=== PATIENT | male | born 1930 | race Caucasian/White ===

== ENCOUNTER 2018-01-17 19:34 | Inpatient (IN) | payer MEDICARE, BC ==
--- NOTE | 2018-01-17 21:17 | EDM.PDOC ---
ED HPI GENERAL MEDICAL PROBLEM - General Chief Complaint: General Stated Complaint: WEAK VIA [facility] Time Seen by Provider: 01/17/18 20:24 Source of Information: Reports: Patient, Family History Limitations: Reports: No Limitations - History of Present Illness INITIAL COMMENTS - FREE TEXT/NARRATIVE: This man arrived by EMS with complaint of weakness and fever. It started last night with not feeling well. At noon today he felt cold and then suddenly weak. No N/V. Hx chronic diarrhea. History of Lymphoma chemo 2013. Today had pain in his left leg. Hurt to move it. Doesn't hurt now. wants him admitted. - Related Data Allergies Allergy/AdvReac Type Severity Reaction Status Date / Time No Known Allergies Allergy Verified 01/17/18 19:50 Home Meds: Home Meds Aspirin [Saloni Chewable] 81 mg PO DAILY 01/17/18 [History] Bifidobacterium Infantis [Align] 4 mg PO DAILY 01/17/18 [History] Colestipol HCl 2 tab PO BEDTIME 01/17/18 [History] Finasteride 5 mg PO DAILY 01/17/18 [History] Loperamide [Imodium] 2 mg PO BID 01/17/18 [History] Simethicone [Phazyme] 250 mg PO DAILY PRN 01/17/18 [History] Past Medical History HEENT History: Reports: Hard of Hearing Other HEENT History: hearing aides Gastrointestinal History: Reports: Other (See Below) Other Gastrointestinal History: diarrhea, Genitourinary History: Reports: BPH, Prostate Disorder Musculoskeletal History: Reports: Back Pain, Chronic Neurological History: Reports: Neuropathy, Diabetic Endocrine/Metabolic History: Reports: Diabetes, Type II Hematologic History: Reports: Anemia Oncologic (Cancer) History: Reports: Other (See Below) Other Oncologic History: leukemia - Past Surgical History GI Surgical History: Reports: Colonoscopy, Other (See Below) Other GI Surgeries/Procedures: portion of small and large intestine removed 2013 b/c of tumor when he had leukemia Oncologic Surgical History: Reports: None Dermatological Surgical History: Reports: Other (See Below) Social & Family History - Family History Family Medical History: Noncontributory - Tobacco Use Smoking Status *Q: Former Smoker Used Tobacco, but Quit: Yes Month/Year Tobacco Last Used: 30 - Caffeine Use Caffeine Use: Reports: Coffee - Alcohol Use Days Per Week of Alcohol Use: 5 Number of Drinks Per Day: 2 Total Drinks Per Week: 10 - Recreational Drug Use Recreational Drug Use: No ED ROS GENERAL - Review of Systems Review Of Systems: See Below Constitutional: Reports: Fever, Weakness HEENT: Reports: No Symptoms Respiratory: Reports: No Symptoms Cardiovascular: Reports: No Symptoms Endocrine: Reports: No Symptoms GI/Abdominal: Reports: Diarrhea (chronic) : Reports: No Symptoms Musculoskeletal: Reports: Other (lt leg apin resolved) Skin: Reports: No Symptoms Neurological: Reports: No Symptoms Psychiatric: Reports: No Symptoms Hematologic/Lymphatic: Reports: No Symptoms Immunologic: Reports: No Symptoms ED EXAM, GENERAL - Physical Exam Exam: See Below Exam Limited By: No Limitations General Appearance: Alert, WD/WN, No Apparent Distress, Other (smiling talkative ) Eye Exam: Bilateral Eye: EOMI, PERRL Ears: Normal TMs, Other (hearing aides) Nose: Normal Inspection Throat/Mouth: Normal Inspection, Normal Oropharynx Head: Atraumatic Neck: Normal Inspection, Supple Respiratory/Chest: Lungs Clear Cardiovascular: Normal Peripheral Pulses, Regular Rate, Rhythm, No Murmur GI/Abdominal: Normal Bowel Sounds, Soft, Non-Tender, Other (lower midline scar) Back Exam: Normal Inspection Extremities: Normal Inspection, Non-Tender, No Pedal Edema Neurological: Alert, Oriented, CN II-XII Intact, Normal Cognition, No Motor/ Sensory Deficits Psychiatric: Normal Affect Skin Exam: Warm, Dry Course - Vital Signs Last Recorded V/S: Last Vital Signs Temp 38.8 C H 01/17/18 22:01 Pulse 97 01/17/18 22:01 Resp 16 01/17/18 22:01 BP 124/65 01/17/18 22:01 Pulse Ox 98 01/17/18 22:01 - Orders/Labs/Meds Orders: Active Orders 24 hr Category Date Time Status EKG Documentation Completion [RC] ASDIRECTED Care 01/17/18 20:42 Active Chest 1V Frontal [CR] Urgent Exams 01/17/18 20:41 Taken CULTURE BLOOD [BC] Urgent Lab 01/17/18 20:45 Received CULTURE BLOOD [BC] Urgent Lab 01/17/18 20:45 Received UA W/MICROSCOPIC [URIN] Urgent Lab 01/17/18 21:49 Ordered Blood Culture x2 Reflex Set [OM.PC] Urgent Oth 01/17/18 20:42 Ordered EKG 12 Lead [EK] Urgent Ther 01/17/18 20:42 Ordered Labs: Laboratory Tests 01/17/18 01/17/18 01/17/18 Range/Units 20:45 20:45 20:45 WBC 12.1 H (4.5-11.0) K/uL RBC 3.97 L (4.30-5.90) M/uL Hgb 12.7 (12.0-15.0) g/dL Hct 36.7 L (40.0-54.0) % MCV 92 (80-98) fL MCH 32 H (27-31) pg MCHC 35 (32-36) % Plt Count 147 L (150-400) K/uL Neut % (Auto) 78 H (36-66) % Lymph % (Auto) 11 L (24-44) % [place] % (Auto) 11 H (2-6) % Eos % (Auto) 0 L (2-4) % Baso % (Auto) 0 (0-1) % Sodium (140-148) mmol/L Potassium (3.6-5.2) mmol/L Chloride (100-108) mmol/L Carbon Dioxide (21-32) mmol/L Anion Gap (5.0-14.0) mmol/L BUN (7-18) mg/dL Creatinine (0.8-1.3) mg/dL Est Cr Clr Drug Dosing mL/min Estimated GFR (MDRD) (>60) Glucose (74-106) mg/dL Lactic Acid 1.6 (0.4-2.0) mmol/L Calcium (8.5-10.1) mg/dL Total Bilirubin (0.2-1.0) mg/dL AST (15-37) U/L ALT (12-78) U/L Alkaline Phosphatase (46-116) U/L C-Reactive Protein 8.64 H (0.0-0.3) mg/dL Total Protein (6.4-8.2) g/dL Albumin (3.4-5.0) g/dL Globulin (2.3-3.5) g/dL Albumin/Globulin Ratio (1.2-2.2) Urine Color Urine Appearance Urine pH (4.5-8.0) Ur Specific [place] (1.008-1.030) Urine Protein (NEGATIVE) mg/dL Urine Glucose (UA) (NEGATIVE) mg/dL Urine Ketones (NEGATIVE) mg/dL Urine Occult Blood (NEGATIVE) Urine Nitrite (NEGAITVE) Urine Bilirubin (NEGATIVE) Urine Urobilinogen (NORMAL) mg/dL Ur Leukocyte Esterase (NEGATIVE) Urine RBC (0-5) Urine WBC (0-5) Ur Epithelial Cells Amorphous Sediment Urine Bacteria Urine Mucus 01/17/18 01/17/18 Range/Units 20:45 21:49 WBC (4.5-11.0) K/uL RBC (4.30-5.90) M/uL Hgb (12.0-15.0) g/dL Hct (40.0-54.0) % MCV (80-98) fL MCH (27-31) pg MCHC (32-36) % Plt Count (150-400) K/uL Neut % (Auto) (36-66) % Lymph % (Auto) (24-44) % [place] % (Auto) (2-6) % Eos % (Auto) (2-4) % Baso % (Auto) (0-1) % Sodium 131 L (140-148) mmol/L Potassium 4.2 (3.6-5.2) mmol/L Chloride 96 L (100-108) mmol/L Carbon Dioxide 24 (21-32) mmol/L Anion Gap 15.2 H (5.0-14.0) mmol/L BUN 14 (7-18) mg/dL Creatinine 1.1 (0.8-1.3) mg/dL Est Cr Clr Drug Dosing 49.77 mL/min Estimated GFR (MDRD) > 60 (>60) Glucose 158 H (74-106) mg/dL Lactic Acid (0.4-2.0) mmol/L Calcium 8.5 (8.5-10.1) mg/dL Total Bilirubin 0.7 (0.2-1.0) mg/dL AST 23 (15-37) U/L ALT 25 (12-78) U/L Alkaline Phosphatase 87 (46-116) U/L C-Reactive Protein (0.0-0.3) mg/dL Total Protein 7.0 (6.4-8.2) g/dL Albumin 3.3 L (3.4-5.0) g/dL Globulin 3.7 H (2.3-3.5) g/dL Albumin/Globulin Ratio 0.9 L (1.2-2.2) Urine Color Yellow Urine Appearance Cloudy Urine pH 5.0 (4.5-8.0) Ur Specific [place] 1.020 (1.008-1.030) Urine Protein 30 H (NEGATIVE) mg/dL Urine Glucose (UA) Normal (NEGATIVE) mg/dL Urine Ketones 15 H (NEGATIVE) mg/dL Urine Occult Blood Large (NEGATIVE) Urine Nitrite Negative (NEGAITVE) Urine Bilirubin Negative (NEGATIVE) Urine Urobilinogen Normal (NORMAL) mg/dL Ur Leukocyte Esterase Large (NEGATIVE) Urine RBC Semi-packed H (0-5) Urine WBC Semi-packed H (0-5) Ur Epithelial Cells Few Amorphous Sediment Not seen Urine Bacteria Many Urine Mucus Not seen - Radiology Interpretation Free Text/Narrative:: some scarring on right but no infiltrate - Re-Assessments/Exams Free Text/Narrative Re-Assessment/Exam: 01/17/18 22:12 labs suggest urosepsis. Suri Vance here and will admit. Departure - Departure Time of Disposition: 22:13 Disposition: Admitted As Inpatient 67 Condition: Fair Clinical Impression: Urinary tract infection, Sepsis - Discharge Information Referrals: PCP,None [Primary Care Provider] - Forms: ED Department Discharge - My Orders Last 24 Hours: My Active Orders 01/17/18 20:41 Chest 1V Frontal [CR] Urgent 01/17/18 20:42 EKG Documentation Completion [RC] ASDIRECTED Blood Culture x2 Reflex Set [OM.PC] Urgent EKG 12 Lead [EK] Urgent 01/17/18 20:45 CULTURE BLOOD [BC] Urgent CULTURE BLOOD [BC] Urgent 01/17/18 21:49 UA W/MICROSCOPIC [URIN] Urgent - Assessment/Plan Last 24 Hours: My Active Orders 01/17/18 20:41 Chest 1V Frontal [CR] Urgent 01/17/18 20:42 EKG Documentation Completion [RC] ASDIRECTED Blood Culture x2 Reflex Set [OM.PC] Urgent EKG 12 Lead [EK] Urgent 01/17/18 20:45 CULTURE BLOOD [BC] Urgent CULTURE BLOOD [BC] Urgent 01/17/18 21:49 UA W/MICROSCOPIC [URIN] Urgent
[2018-01-17] MEDS ORDERED: Ciprofloxacin in D5W 400 MG in Premix Bag 1 BAG IV SCH ×2 (22:15)
[2018-01-17] MEDS ORDERED: Sodium Chloride 0.9% 1,000 ML IV SCH (22:15)
[2018-01-17] MEDS ORDERED: Acetaminophen 325 MG Tab PO ONE (22:36)
--- NOTE | 2018-01-17 23:17 | PCM.HP ---
H&P History of Present Illness - General Date of Service: 01/17/18 Admit Problem/Dx: Admission Diagnosis/Problem Admission Diagnosis/Problem Urosepsis Source of Information: Patient History Limitations: Reports: No Limitations - History of Present Illness Initial Comments - Free Text/Narative: This man arrived by EMS with complaint of weakness and fever. It started last night with not feeling well. At noon today he felt cold and then suddenly weak. No N/V. Hx chronic diarrhea. History of Lymphoma chemo 2013. Today had pain in his left leg. Hurt to move it. Doesn't hurt now. wants him admitted. Onset of Symptoms: Reports: Gradual Duration of Symptoms: Reports: Week(s): (one week of urinary symptoms, weak flow , pain,pressure and intermittent fevers.) Location: Reports: Generalized (fever) Severity: Moderate Improves with: Reports: None Worsens with: Reports: None Associated Symptoms: Reports: Fever/Chills, Malaise, Other (dysuria) - Related Data Allergies/Adverse Reactions: Allergies Allergy/AdvReac Type Severity Reaction Status Date / Time No Known Allergies Allergy Verified 01/17/18 19:50 Home Medications: Home Meds Aspirin [Saloni Chewable] 81 mg PO DAILY 01/17/18 [History] Bifidobacterium Infantis [Align] 4 mg PO DAILY 01/17/18 [History] Colestipol HCl 2 tab PO BEDTIME 01/17/18 [History] Finasteride 5 mg PO DAILY 01/17/18 [History] Loperamide [Imodium] 2 mg PO BID 01/17/18 [History] Simethicone [Phazyme] 250 mg PO DAILY PRN 01/17/18 [History] Past Medical History HEENT History: Reports: Hard of Hearing Other HEENT History: hearing aides Gastrointestinal History: Reports: Other (See Below) Other Gastrointestinal History: diarrhea, Genitourinary History: Reports: BPH, Prostate Disorder Musculoskeletal History: Reports: Back Pain, Chronic Neurological History: Reports: Neuropathy, Diabetic Endocrine/Metabolic History: Reports: Diabetes, Type II Hematologic History: Reports: Anemia Oncologic (Cancer) History: Reports: Other (See Below) Other Oncologic History: leukemia - Past Surgical History GI Surgical History: Reports: Colonoscopy, Other (See Below) Other GI Surgeries/Procedures: portion of small and large intestine removed 2014 b/c of tumor when he had leukemia Oncologic Surgical History: Reports: None Dermatological Surgical History: Reports: Other (See Below) Social & Family History - Family History Family Medical History: Noncontributory - Tobacco Use Smoking Status *Q: Former Smoker Used Tobacco, but Quit: Yes Month/Year Tobacco Last Used: 30 - Caffeine Use Caffeine Use: Reports: Coffee - Alcohol Use Days Per Week of Alcohol Use: 5 Number of Drinks Per Day: 2 Total Drinks Per Week: 10 - Recreational Drug Use Recreational Drug Use: No - Living Situation & Occupation Living situation: Reports: Occupation: Retired (lives with in [place], [place]. has a [place] home in [place], [place]. has been there for the past 10 days.) H&P Review of Systems - Review of Systems: Review Of Systems: See Below General: Reports: Fever, Chills, Weakness, Fatigue, Decreased Appetite HEENT: Reports: Glasses, Other (partial) Pulmonary: Reports: No Symptoms Cardiovascular: Reports: No Symptoms Gastrointestinal: Reports: Abdominal Pain (low pelvic pain), Decreased Appetite , Nausea, Other (last bowel movement 01/16/2018) Genitourinary: Reports: Dysuria, Frequency, Burning, Pain, Urgency, Other ( bladder symptoms for one week.) Musculoskeletal: Reports: No Symptoms Skin: Reports: No Symptoms Psychiatric: Reports: No Symptoms Neurological: Reports: Weakness Hematologic/Lymphatic: Reports: No Symptoms Immunologic: Reports: No Symptoms Exam - Exam Exam: See Below - Vital Signs Vital Signs: Last Vital Signs Temp 38.8 C H 01/17/18 22:43 Pulse 97 01/17/18 22:01 Resp 16 01/17/18 22:01 BP 124/65 01/17/18 22:01 Pulse Ox 98 01/17/18 22:01 Weight: 144 kg - Exam General: Alert, Oriented, Cooperative, Mild Distress HEENT: PERRLA, Hearing Intact, Mucosa Moist & [place], Nares Patent, Normal Nasal Septum, Posterior Pharynx Clear, Conjunctiva Clear, EOMI, EACs Clear, TMs Clear Neck: Supple, Trachea Midline Lungs: Clear to Auscultation, Normal Respiratory Effort Cardiovascular: Regular Rate, Regular Rhythm GI/Abdominal Exam: Normal Bowel Sounds, Soft, No Organomegaly, No Distention, No Abnormal Bruit, No Mass, Pelvis Stable, Tender (over low pelvis area to palpation) (Male) Exam: Deferred Rectal (Males) Exam: Deferred Back Exam: Normal Inspection, Full Range of Motion, NT Extremities: Normal Inspection, Normal Range of Motion, Non-Tender, No Pedal Edema, Normal Capillary Refill Peripheral Pulses: 2+: Radial (L), Radial (R) Skin: Warm, Dry, Intact Neurological: Reflexes Equal Bilateral, Strength Equal Bilateral Neuro Extensive - Mental Status: Alert, Oriented x3, Normal Mood/Affect, Normal Cognition Neuro Extensive - Motor, Sensory, Reflexes: CN II-XII Intact Psychiatric: Alert, Normal Affect, Normal Mood - Patient Data Lab Results Last 24 hrs: Laboratory Results - last 24 hr 01/17/18 01/17/18 01/17/18 Range/Units 20:45 20:45 20:45 WBC 12.1 H (4.5-11.0) K/uL RBC 3.97 L (4.30-5.90) M/uL Hgb 12.7 (12.0-15.0) g/dL Hct 36.7 L (40.0-54.0) % MCV 92 (80-98) fL MCH 32 H (27-31) pg MCHC 35 (32-36) % Plt Count 147 L (150-400) K/uL Neut % (Auto) 78 H (36-66) % Lymph % (Auto) 11 L (24-44) % [place] % (Auto) 11 H (2-6) % Eos % (Auto) 0 L (2-4) % Baso % (Auto) 0 (0-1) % Sodium (140-148) mmol/L Potassium (3.6-5.2) mmol/L Chloride (100-108) mmol/L Carbon Dioxide (21-32) mmol/L Anion Gap (5.0-14.0) mmol/L BUN (7-18) mg/dL Creatinine (0.8-1.3) mg/dL Est Cr Clr Drug Dosing mL/min Estimated GFR (MDRD) (>60) Glucose (74-106) mg/dL Lactic Acid 1.6 (0.4-2.0) mmol/L Calcium (8.5-10.1) mg/dL Total Bilirubin (0.2-1.0) mg/dL AST (15-37) U/L ALT (12-78) U/L Alkaline Phosphatase (46-116) U/L C-Reactive Protein 8.64 H (0.0-0.3) mg/dL Total Protein (6.4-8.2) g/dL Albumin (3.4-5.0) g/dL Globulin (2.3-3.5) g/dL Albumin/Globulin Ratio (1.2-2.2) Urine Color Urine Appearance Urine pH (4.5-8.0) Ur Specific [place] (1.008-1.030) Urine Protein (NEGATIVE) mg/dL Urine Glucose (UA) (NEGATIVE) mg/dL Urine Ketones (NEGATIVE) mg/dL Urine Occult Blood (NEGATIVE) Urine Nitrite (NEGAITVE) Urine Bilirubin (NEGATIVE) Urine Urobilinogen (NORMAL) mg/dL Ur Leukocyte Esterase (NEGATIVE) Urine RBC (0-5) Urine WBC (0-5) Ur Epithelial Cells Amorphous Sediment Urine Bacteria Urine Mucus 01/17/18 01/17/18 Range/Units 20:45 21:49 WBC (4.5-11.0) K/uL RBC (4.30-5.90) M/uL Hgb (12.0-15.0) g/dL Hct (40.0-54.0) % MCV (80-98) fL MCH (27-31) pg MCHC (32-36) % Plt Count (150-400) K/uL Neut % (Auto) (36-66) % Lymph % (Auto) (24-44) % [place] % (Auto) (2-6) % Eos % (Auto) (2-4) % Baso % (Auto) (0-1) % Sodium 131 L (140-148) mmol/L Potassium 4.2 (3.6-5.2) mmol/L Chloride 96 L (100-108) mmol/L Carbon Dioxide 24 (21-32) mmol/L Anion Gap 15.2 H (5.0-14.0) mmol/L BUN 14 (7-18) mg/dL Creatinine 1.1 (0.8-1.3) mg/dL Est Cr Clr Drug Dosing 49.77 mL/min Estimated GFR (MDRD) > 60 (>60) Glucose 158 H (74-106) mg/dL Lactic Acid (0.4-2.0) mmol/L Calcium 8.5 (8.5-10.1) mg/dL Total Bilirubin 0.7 (0.2-1.0) mg/dL AST 23 (15-37) U/L ALT 25 (12-78) U/L Alkaline Phosphatase 87 (46-116) U/L C-Reactive Protein (0.0-0.3) mg/dL Total Protein 7.0 (6.4-8.2) g/dL Albumin 3.3 L (3.4-5.0) g/dL Globulin 3.7 H (2.3-3.5) g/dL Albumin/Globulin Ratio 0.9 L (1.2-2.2) Urine Color Yellow Urine Appearance Cloudy Urine pH 5.0 (4.5-8.0) Ur Specific [place] 1.020 (1.008-1.030) Urine Protein 30 H (NEGATIVE) mg/dL Urine Glucose (UA) Normal (NEGATIVE) mg/dL Urine Ketones 15 H (NEGATIVE) mg/dL Urine Occult Blood Large (NEGATIVE) Urine Nitrite Negative (NEGAITVE) Urine Bilirubin Negative (NEGATIVE) Urine Urobilinogen Normal (NORMAL) mg/dL Ur Leukocyte Esterase Large (NEGATIVE) Urine RBC Semi-packed H (0-5) Urine WBC Semi-packed H (0-5) Ur Epithelial Cells Few Amorphous Sediment Not seen Urine Bacteria Many Urine Mucus Not seen Result Diagrams: 01/17/18 20:45 01/17/18 20:45 - Problem List (1) Sepsis due to urinary tract infection SNOMED Code(s): 778711257 ICD Code: A41.9 - SEPSIS, UNSPECIFIED ORGANISM; N39.0 - URINARY TRACT INFECTION, SITE NOT SPECIFIED Status: Acute Priority: High Current Visit: Yes (2) Diabetes mellitus type 2 in nonobese SNOMED Code(s): 503323280 ICD Code: E11.9 - TYPE 2 DIABETES MELLITUS WITHOUT COMPLICATIONS Status: Acute Priority: High Current Visit: Yes Problem List Initiated/Reviewed/Updated: Yes Orders Last 24hrs: Active Orders 24 hr Category Date Time Status Patient Status Manage Transfer [TRANSFER] Routine ADT 01/17/18 22:38 Active EKG Documentation Completion [RC] ASDIRECTED Care 01/17/18 20:42 Active Chest 1V Frontal [CR] Urgent Exams 01/17/18 20:41 Taken CULTURE BLOOD [BC] Urgent Lab 01/17/18 20:45 Received CULTURE BLOOD [BC] Urgent Lab 01/17/18 20:45 Received LACTIC ACID [CHEM] Stat Lab 01/18/18 04:11 Ordered UA W/MICROSCOPIC [URIN] Urgent Lab 01/17/18 21:49 Ordered Ciprofloxacin in D5W [Cipro in D5W 400 MG/200 ML] 400 Med 01/17/18 22:15 Active mg Premix Bag 1 bag IV Q12H Sodium Chloride 0.9% [Normal Saline] 1,000 ml Med 01/17/18 22:15 Active IV ASDIRECTED Blood Culture x2 Reflex Set [OM.PC] Urgent Oth 01/17/18 20:42 Ordered Resuscitation Status Routine Resus Stat 01/17/18 22:39 Ordered EKG 12 Lead [EK] Urgent Ther 01/17/18 20:42 Ordered Medication Orders Ciprofloxacin/Dextrose 400 mg/ (Premix) 200 mls @ 200 mls/hr IV Q12H [facility] Last Admin: 01/17/18 22:32 Dose: 200 mls/hr Sodium Chloride (Normal Saline) 1,000 mls @ 999 mls/hr IV ASDIRECTED [facility] Last Admin: 01/17/18 22:32 Dose: 999 mls/hr Assessment/Plan Comment:: Admission Template ASSESSMENT / PLAN This man arrived by EMS with complaint of weakness and fever. It started last night with not feeling well. At noon today he felt cold and then suddenly weak. No N/V. Hx chronic diarrhea. History of Lymphoma chemo 2013. Today had pain in his left leg. Hurt to move it. Doesn't hurt now. wants him admitted. In ER, Mr Preciado noted to have fever 101.9-97-16 BP 124/65, his labsWBC 12.1, hgb 12.7, chemistry Na+131, K+ 4.2, cl 96, anion gap 15.2, bun 14, creat 1.1, clucose 158, Urinalysis WBC packed, RBC packed, bacteria many. IV fluids and IV Cipro started in the ER. discussed plan of care with Mr. Preciado, he agrees to admission, but has concerns with staying in hospitial due to his is traveling home today to [place], [place]. but will stay until he is well. Sepsis due to bladder infection -Admit to [address] [place] [address] for further monitoring -IV Fluids for rehydration NS at 125 mL per hour -IV Antibiotic: Cipro 400 gram IV every 12 hours -Tyenol for fever control -Advise to notify nurses of any chest pain or other symptoms -blood cultures x2 pending -urine culture pending -And a.m. labs: CBC, BMP, lactic acid at 0410 Diabetes type 2; diet controlled -bmp in am -consistent carb diet Maintenance issues -Orders home meds: ordered -Nutrition: diabetic diet -Vanessa catheter not indicated at this time -DVT: SCD -PPI: IV Protonix 40mg daily CODE STATUS: DNR/DNI Admission status: Admit to [address] [place] [address] Admission justification. This patient will be admitted for inpatient services and is medically appropriate meeting medical necessity for inpatient admission as outlined in my documentation. I reasonably expect the patient will require inpatient services that span. Time over 2 midnights. I reasonably expect this patient to be discharged or transferred within 96 hours after admission to the critical access hospital. Disposition; home Primary care provider: Outside Provider, DAISHA El Hospitalist: Dr. Donovan
[2018-01-17] MEDS ORDERED: LORazepam 2 MG/ML SDV IV PRN (23:26)
[2018-01-17] MEDS ORDERED: Ondansetron 4 MG Tab.DIS PO PRN (23:26)
[2018-01-17] MEDS ORDERED: Bisacodyl 5 MG Tab PO PRN (23:26)
[2018-01-17] MEDS ORDERED: Ibuprofen 400 MG Tab PO PRN (23:26)
[2018-01-17] MEDS ORDERED: Docusate Sodium 100 MG Cap PO PRN (23:26)
[2018-01-17] MEDS ORDERED: Ondansetron 4 MG/2 ML SDV IV PRN (23:26)
[2018-01-17] MEDS ORDERED: Albuterol 0.083% 2.5 MG/3 ML Neb Soln NEB PRN (23:26)
[2018-01-17] MEDS ORDERED: oxyCODONE 5 MG Tab PO PRN (23:26)
[2018-01-17] MEDS ORDERED: Morphine 2 MG/ML Syringe IVPUSH PRN (23:26)
[2018-01-17] MEDS ORDERED: Pantoprazole 40 MG Vial IVPUSH SCH (23:26)
[2018-01-17] MEDS ORDERED: Melatonin 3 MG Tab PO PRN (23:26)
[2018-01-17] MEDS ORDERED: Simethicone 80 MG Tab.Chew PO PRN (23:26)
[2018-01-17] MEDS ORDERED: Pantoprazole 40 MG Vial IVPUSH ONE (23:45)
[2018-01-18] MEDS: Sodium Chloride 0.9% 1,000 ML IV SCH (00:33)
[2018-01-18] MEDS ORDERED: Enoxaparin 40 MG/0.4 ML Syringe SUBCUT ONE (01:00)
[2018-01-18] MEDS: Acetaminophen 325 MG Tab PO PRN ×3 (05:48→18:53)
[2018-01-18] MEDS: Finasteride 5 MG Tab PO SCH (08:38)
[2018-01-18] MEDS: Loperamide 2 MG Cap PO SCH ×2 (08:38→21:23)
[2018-01-18] MEDS: Enoxaparin 40 MG/0.4 ML Syringe SUBCUT SCH (08:38)
[2018-01-18] MEDS ORDERED: Lactobacillus Rhamnosus GG (Probiotic) Cap PO SCH (09:00)
[2018-01-18] MEDS: cefTRIAXone 1 GM in Sodium Chloride 0.9% 50 ML IV SCH (09:18)
--- NOTE | 2018-01-18 09:30 | CR ---
CHEST: Portable CLINICAL HISTORY:Pain COMPARISON:None FINDINGS: Heart and pulmonary vascularity appear normal. Lung chaudhary are clear. There is a left subc lavian central venous line in place. Tip is in the superior vena cava IMPRESSION: No acute cardiopulmonary process
[2018-01-18] MEDS ORDERED: Ciprofloxacin in D5W 400 MG in Premix Bag 1 BAG IV SCH ×2 (10:00)
[2018-01-18] MEDS ORDERED: Sodium Chloride 0.9% 1,000 ML IV SCH (12:45)
[2018-01-18] MEDS ORDERED: 50% Dextrose in Water 50 ML Syringe IV PRN (12:57)
[2018-01-18] MEDS ORDERED: Glucose Gel 15 GM in 37.5 GM Tube PO PRN (12:57)
--- NOTE | 2018-01-18 12:57 | PCM.PN ---
- General Info Date of Service: 01/18/18 Subjective Update: Mr. Precidao is an 87-year-old gentleman who was admitted last night with weakness secondary to urinary tract infection and early sepsis. Blood pressures have been somewhat borderline since admission and he has received extra IV fluids, lactic acid level was mildly elevated this morning. Blood cultures 2 are growing gram-negative rods, final ID and sensitivities pending. White blood cell count has improved since admission and is now within normal range. He feels stronger and much less weak since admission. - Review of Systems General: Reports: Fever, Weakness, Chills Pulmonary: Reports: No Symptoms Cardiovascular: Reports: No Symptoms Gastrointestinal: Reports: No Symptoms Genitourinary: Reports: Dysuria. Denies: Frequency, Urgency, Hematuria, Retention - Patient Data Vitals - Most Recent: Last Vital Signs Temp 100.8 F H 01/18/18 11:12 Pulse 86 01/18/18 06:41 Resp 16 01/18/18 11:08 BP 90/77 01/18/18 11:08 Pulse Ox 96 01/18/18 11:08 Weight - Most Recent: 142 lb 14.388 oz I&O - Last 24 Hours: Intake & Output 01/17/18 01/18/18 01/18/18 22:59 06:59 14:59 Intake Total 1555 50 Output Total 600 Balance 955 50 Lab Results Last 24 Hours: Laboratory Results - last 24 hr 01/17/18 01/17/18 01/17/18 Range/Units 20:45 20:45 20:45 WBC 12.1 H (4.5-11.0) K/uL RBC 3.97 L (4.30-5.90) M/uL Hgb 12.7 (12.0-15.0) g/dL Hct 36.7 L (40.0-54.0) % MCV 92 (80-98) fL MCH 32 H (27-31) pg MCHC 35 (32-36) % Plt Count 147 L (150-400) K/uL Neut % (Auto) 78 H (36-66) % Lymph % (Auto) 11 L (24-44) % [place] % (Auto) 11 H (2-6) % Eos % (Auto) 0 L (2-4) % Baso % (Auto) 0 (0-1) % Sodium (140-148) mmol/L Potassium (3.6-5.2) mmol/L Chloride (100-108) mmol/L Carbon Dioxide (21-32) mmol/L Anion Gap (5.0-14.0) mmol/L BUN (7-18) mg/dL Creatinine (0.8-1.3) mg/dL Est Cr Clr Drug Dosing mL/min Estimated GFR (MDRD) (>60) Glucose (74-106) mg/dL Lactic Acid 1.6 (0.4-2.0) mmol/L Calcium (8.5-10.1) mg/dL Total Bilirubin (0.2-1.0) mg/dL AST (15-37) U/L ALT (12-78) U/L Alkaline Phosphatase (46-116) U/L C-Reactive Protein 8.64 H (0.0-0.3) mg/dL Total Protein (6.4-8.2) g/dL Albumin (3.4-5.0) g/dL Globulin (2.3-3.5) g/dL Albumin/Globulin Ratio (1.2-2.2) Urine Color Urine Appearance Urine pH (4.5-8.0) Ur Specific [place] (1.008-1.030) Urine Protein (NEGATIVE) mg/dL Urine Glucose (UA) (NEGATIVE) mg/dL Urine Ketones (NEGATIVE) mg/dL Urine Occult Blood (NEGATIVE) Urine Nitrite (NEGAITVE) Urine Bilirubin (NEGATIVE) Urine Urobilinogen (NORMAL) mg/dL Ur Leukocyte Esterase (NEGATIVE) Urine RBC (0-5) Urine WBC (0-5) Ur Epithelial Cells Amorphous Sediment Urine Bacteria Urine Mucus 01/17/18 01/17/18 01/18/18 Range/Units 20:45 21:49 05:45 WBC 10.4 (4.5-11.0) K/uL RBC 3.88 L (4.30-5.90) M/uL Hgb 12.0 (12.0-15.0) g/dL Hct 36.2 L (40.0-54.0) % MCV 93 (80-98) fL MCH 31 (27-31) pg MCHC 33 (32-36) % Plt Count 117 L (150-400) K/uL Neut % (Auto) 78 H (36-66) % Lymph % (Auto) 11 L (24-44) % [place] % (Auto) 11 H (2-6) % Eos % (Auto) 0 L (2-4) % Baso % (Auto) 0 (0-1) % Sodium 131 L (140-148) mmol/L Potassium 4.2 (3.6-5.2) mmol/L Chloride 96 L (100-108) mmol/L Carbon Dioxide 24 (21-32) mmol/L Anion Gap 15.2 H (5.0-14.0) mmol/L BUN 14 (7-18) mg/dL Creatinine 1.1 (0.8-1.3) mg/dL Est Cr Clr Drug Dosing 49.77 mL/min Estimated GFR (MDRD) > 60 (>60) Glucose 158 H (74-106) mg/dL Lactic Acid (0.4-2.0) mmol/L Calcium 8.5 (8.5-10.1) mg/dL Total Bilirubin 0.7 (0.2-1.0) mg/dL AST 23 (15-37) U/L ALT 25 (12-78) U/L Alkaline Phosphatase 87 (46-116) U/L C-Reactive Protein (0.0-0.3) mg/dL Total Protein 7.0 (6.4-8.2) g/dL Albumin 3.3 L (3.4-5.0) g/dL Globulin 3.7 H (2.3-3.5) g/dL Albumin/Globulin Ratio 0.9 L (1.2-2.2) Urine Color Yellow Urine Appearance Cloudy Urine pH 5.0 (4.5-8.0) Ur Specific [place] 1.020 (1.008-1.030) Urine Protein 30 H (NEGATIVE) mg/dL Urine Glucose (UA) Normal (NEGATIVE) mg/dL Urine Ketones 15 H (NEGATIVE) mg/dL Urine Occult Blood Large (NEGATIVE) Urine Nitrite Negative (NEGAITVE) Urine Bilirubin Negative (NEGATIVE) Urine Urobilinogen Normal (NORMAL) mg/dL Ur Leukocyte Esterase Large (NEGATIVE) Urine RBC Semi-packed H (0-5) Urine WBC Semi-packed H (0-5) Ur Epithelial Cells Few Amorphous Sediment Not seen Urine Bacteria Many Urine Mucus Not seen 01/18/18 01/18/18 Range/Units 05:45 05:45 WBC (4.5-11.0) K/uL RBC (4.30-5.90) M/uL Hgb (12.0-15.0) g/dL Hct (40.0-54.0) % MCV (80-98) fL MCH (27-31) pg MCHC (32-36) % Plt Count (150-400) K/uL Neut % (Auto) (36-66) % Lymph % (Auto) (24-44) % [place] % (Auto) (2-6) % Eos % (Auto) (2-4) % Baso % (Auto) (0-1) % Sodium 133 L (140-148) mmol/L Potassium 4.1 (3.6-5.2) mmol/L Chloride 98 L (100-108) mmol/L Carbon Dioxide 24 (21-32) mmol/L Anion Gap 15.1 H (5.0-14.0) mmol/L BUN 14 (7-18) mg/dL Creatinine 1.1 (0.8-1.3) mg/dL Est Cr Clr Drug Dosing 49.77 mL/min Estimated GFR (MDRD) > 60 (>60) Glucose 137 H (74-106) mg/dL Lactic Acid 2.1 H (0.4-2.0) mmol/L Calcium 8.0 L (8.5-10.1) mg/dL Total Bilirubin (0.2-1.0) mg/dL AST (15-37) U/L ALT (12-78) U/L Alkaline Phosphatase (46-116) U/L C-Reactive Protein (0.0-0.3) mg/dL Total Protein (6.4-8.2) g/dL Albumin (3.4-5.0) g/dL Globulin (2.3-3.5) g/dL Albumin/Globulin Ratio (1.2-2.2) Urine Color Urine Appearance Urine pH (4.5-8.0) Ur Specific [place] (1.008-1.030) Urine Protein (NEGATIVE) mg/dL Urine Glucose (UA) (NEGATIVE) mg/dL Urine Ketones (NEGATIVE) mg/dL Urine Occult Blood (NEGATIVE) Urine Nitrite (NEGAITVE) Urine Bilirubin (NEGATIVE) Urine Urobilinogen (NORMAL) mg/dL Ur Leukocyte Esterase (NEGATIVE) Urine RBC (0-5) Urine WBC (0-5) Ur Epithelial Cells Amorphous Sediment Urine Bacteria Urine Mucus Venkat Results Last 24 Hours: Microbiology 01/17/18 20:45 Aerobic Blood Culture - Preliminary Blood - Venous 01/17/18 20:45 Aerobic Blood Culture - Preliminary Blood - Venous - Lab Draw Med Orders - Current: Current Medications Acetaminophen (Tylenol) 650 mg PO Q4H PRN PRN Reason: Pain (Mild 1-3)/fever Last Admin: 01/18/18 11:12 Dose: 650 mg Albuterol (Proventil Neb Soln) 2.5 mg NEB Q4H PRN PRN Reason: Shortness Of Breath/wheezing Bisacodyl (Dulcolax) 5 mg PO DAILY PRN PRN Reason: Constipation Colestipol HCl (Colestipol Hcl) 2 gm PO BEDTIME [facility] Docusate Sodium (Colace) 100 mg PO BID PRN PRN Reason: Constipation Enoxaparin Sodium (Lovenox) 40 mg SUBCUT DAILY [facility] Last Admin: 01/18/18 08:38 Dose: 40 mg Finasteride (Proscar) 5 mg PO DAILY [facility] Last Admin: 01/18/18 08:38 Dose: 5 mg Sodium Chloride (Normal Saline) 1,000 mls @ 125 mls/hr IV ASDIRECTED [facility] Last Admin: 01/18/18 00:33 Dose: 125 mls/hr Ceftriaxone Sodium 1 gm/ (Sodium Chloride) 50 mls @ 100 mls/hr IV Q24H [facility] Last Admin: 01/18/18 09:18 Dose: 100 mls/hr Sodium Chloride (Normal Saline) 1,000 mls @ 250 mls/hr IV ASDIRECTED [facility] Stop: 01/18/18 16:46 Ibuprofen (Motrin) 400 mg PO Q6H PRN PRN Reason: Pain (mild 1-3) Lactobacillus Rhamnosus (Culturelle) 1 cap PO BID [facility] Loperamide HCl (Imodium) 2 mg PO BID [facility] Last Admin: 01/18/18 08:38 Dose: 2 mg Lorazepam (Ativan) 1 mg IV Q6H PRN PRN Reason: Nausea/Vomiting Melatonin (Melatonin) 6 mg PO BEDTIME PRN PRN Reason: Insomnia Morphine Sulfate (Morphine) 2 mg IVPUSH Q2H PRN PRN Reason: Pain (severe 7-10) Ondansetron HCl (Zofran Odt) 4 mg PO Q6H PRN PRN Reason: Nausea able to take PO Ondansetron HCl (Zofran) 4 mg IV Q4H PRN PRN Reason: Nausea/Vomiting Oxycodone HCl (Oxycodone) 5 mg PO Q4H PRN PRN Reason: Pain (moderate 4-6) Pantoprazole Sodium (Protonix Iv) 40 mg IVPUSH Q24H [facility] Simethicone (Simethicone) 240 mg PO DAILY PRN PRN Reason: Gas Discontinued Medications Acetaminophen (Tylenol) 650 mg PO NOW ONE Stop: 01/17/18 22:37 Last Admin: 01/17/18 22:43 Dose: 650 mg Enoxaparin Sodium (Lovenox) 40 mg SUBCUT ONETIME ONE Stop: 01/18/18 01:01 Last Admin: 01/18/18 05:14 Dose: Not Given Ciprofloxacin/Dextrose 400 mg/ (Premix) 200 mls @ 200 mls/hr IV Q12H [facility] Last Admin: 01/17/18 22:32 Dose: 200 mls/hr Sodium Chloride (Normal Saline) 1,000 mls @ 999 mls/hr IV ASDIRECTED [facility] Last Admin: 01/17/18 22:32 Dose: 999 mls/hr Ciprofloxacin/Dextrose 400 mg/ (Premix) 200 mls @ 200 mls/hr IV Q12H [facility] Lactobacillus Rhamnosus (Culturelle) 1 cap PO DAILY [facility] Last Admin: 01/18/18 10:03 Dose: 1 cap Pantoprazole Sodium (Protonix Iv) 40 mg IVPUSH Q24H [facility] Last Admin: 01/18/18 05:15 Dose: Not Given Pantoprazole Sodium (Protonix Iv) 40 mg IVPUSH ONETIME ONE Stop: 01/17/18 23:46 Last Admin: 01/18/18 00:18 Dose: 40 mg - Exam General: Alert, Oriented, Cooperative, No Acute Distress Lungs: Clear to Auscultation, Normal Respiratory Effort Cardiovascular: Regular Rate, Regular Rhythm, No Murmurs GI/Abdominal Exam: Soft, Non-Tender, No Organomegaly, No Distention Extremities: Non-Tender, No Pedal Edema Skin: Warm, Dry, Intact - Problem List Review Problem List Initiated/Reviewed/Updated: Yes - My Orders Last 24 Hours: My Active Orders 01/18/18 09:00 cefTRIAXone [Rocephin] 1 gm Sodium Chloride 0.9% [Normal Saline] 50 ml IV Q24H 01/18/18 09:25 PT Evaluation and Treatment [CONS] Routine 01/18/18 12:26 LACTIC ACID [CHEM] Stat 01/18/18 12:45 Sodium Chloride 0.9% [Normal Saline] 1,000 ml IV ASDIRECTED 01/18/18 21:00 Lactobacillus Rhamnosus GG [Culturelle] 1 cap PO BID 01/19/18 05:00 BASIC METABOLIC PANEL,BMP [CHEM] Timed CBC WITH AUTO DIFF [HEME] Timed MAGNESIUM [CHEM] Timed - Plan Plan:: ASSESSMENT / PLAN Sepsis due to bladder infection-both blood cultures growing gram-negative rods, final ID and sensitivities pending -IV Fluids for rehydration NS at 125 mL per hour -IV Antibiotic: Rocephin 1 g IV every 24 hours -Tyenol for fever control -urine culture pending Diabetes type 2; diet controlled -consistent carb diet -4 times a day glucometers -Low-dose sliding scale NovoLog Maintenance issues -Orders home meds: ordered -Nutrition: diabetic diet -Vanessa catheter not indicated at this time -DVT: SCD -PPI: IV Protonix 40mg daily CODE STATUS: DNR/DNI Admission status: This patient will be admitted for inpatient services and is medically appropriate meeting medical necessity for inpatient admission as outlined in my documentation. I reasonably expect the patient will require inpatient services that span. Time over 2 midnights. I reasonably expect this patient to be discharged or transferred within 96 hours after admission to the critical [facility] hospital. Disposition; home Primary care provider: Outside Provider, DAISHA El Hospitalist: Dr. Jo
[2018-01-18] MEDS: Insulin Aspart 100 Units/ML 3 ML Pen SUBCUT SCH ×2 (17:09→21:27)
[2018-01-18] MEDS ORDERED: Pantoprazole 40 MG Vial IVPUSH SCH (21:00)
[2018-01-18] MEDS: COLESTIPOL 1 GM PO SCH (21:23)
[2018-01-18] MEDS: Lactobacillus Rhamnosus GG (Probiotic) Cap PO SCH (21:23)
[2018-01-19] MEDS: Acetaminophen 325 MG Tab PO PRN ×4 (00:59→21:35)
[2018-01-19] MEDS: Sodium Chloride 0.9% 1,000 ML IV SCH (01:47)
[2018-01-19] MEDS: Insulin Aspart 100 Units/ML 3 ML Pen SUBCUT SCH ×4 (08:02→21:27)
[2018-01-19] MEDS: Lactobacillus Rhamnosus GG (Probiotic) Cap PO SCH ×2 (08:06→21:30)
[2018-01-19] MEDS: Finasteride 5 MG Tab PO SCH (08:07)
[2018-01-19] MEDS: Enoxaparin 40 MG/0.4 ML Syringe SUBCUT SCH (08:07)
[2018-01-19] MEDS: Loperamide 2 MG Cap PO SCH ×2 (08:07→21:30)
[2018-01-19] MEDS: cefTRIAXone 1 GM in Sodium Chloride 0.9% 50 ML IV SCH (08:14)
[2018-01-19] MEDS ORDERED: Magnesium Sulfate/Water 2 GM in Premix Bag 1 BAG IV ONE (10:00)
[2018-01-19] MEDS: Magnesium Oxide 400 MG Tab PO SCH ×2 (10:25→21:30)
--- NOTE | 2018-01-19 11:17 | PCM.PN ---
- General Info Date of Service: 01/19/18 Subjective Update: Mr. Preciado is been stable since yesterday, blood pressure has improved. Blood cultures are growing gram-negative severino, final ID and sensitivities are pending. Overall strength seems to be better and he has been able to be out ambulating in the hallways. Functional Status: Reports: Pain Controlled, Tolerating Diet, Ambulating, Urinating - Review of Systems General: Reports: Weakness. Denies: Fever, Chills Pulmonary: Reports: No Symptoms Cardiovascular: Reports: No Symptoms Gastrointestinal: Reports: No Symptoms Genitourinary: Reports: No Symptoms - Patient Data Vitals - Most Recent: Last Vital Signs Temp 98.3 F 01/19/18 10:41 Pulse 78 01/19/18 10:41 Resp 18 01/19/18 10:41 BP 107/52 L 01/19/18 10:41 Pulse Ox 97 01/19/18 10:41 Weight - Most Recent: 142 lb 14.388 oz I&O - Last 24 Hours: Intake & Output 01/18/18 01/19/18 01/19/18 22:59 06:59 14:59 Intake Total 2012 1891 150 Output Total 700 350 Balance 2012 1191 -200 Lab Results Last 24 Hours: Laboratory Results - last 24 hr 01/18/18 01/18/18 01/19/18 Range/Units 12:40 19:11 04:30 WBC (4.5-11.0) K/uL RBC (4.30-5.90) M/uL Hgb (12.0-15.0) g/dL Hct (40.0-54.0) % MCV (80-98) fL MCH (27-31) pg MCHC (32-36) % Plt Count (150-400) K/uL Neut % (Auto) (36-66) % Lymph % (Auto) (24-44) % [place] % (Auto) (2-6) % Eos % (Auto) (2-4) % Baso % (Auto) (0-1) % Sodium (140-148) mmol/L Potassium (3.6-5.2) mmol/L Chloride (100-108) mmol/L Carbon Dioxide (21-32) mmol/L Anion Gap (5.0-14.0) mmol/L BUN (7-18) mg/dL Creatinine (0.8-1.3) mg/dL Est Cr Clr Drug Dosing mL/min Estimated GFR (MDRD) (>60) Glucose (74-106) mg/dL Lactic Acid 2.1 H 1.5 1.2 (0.4-2.0) mmol/L Calcium (8.5-10.1) mg/dL Magnesium (1.8-2.4) mg/dL 01/19/18 01/19/18 Range/Units 04:49 04:49 WBC 7.7 (4.5-11.0) K/uL RBC 3.22 L (4.30-5.90) M/uL Hgb 10.5 L (12.0-15.0) g/dL Hct 29.7 L (40.0-54.0) % MCV 92 (80-98) fL MCH 33 H (27-31) pg MCHC 35 (32-36) % Plt Count 105 L (150-400) K/uL Neut % (Auto) 74 H (36-66) % Lymph % (Auto) 13 L (24-44) % [place] % (Auto) 13 H (2-6) % Eos % (Auto) 0 L (2-4) % Baso % (Auto) 0 (0-1) % Sodium 135 L (140-148) mmol/L Potassium 3.8 (3.6-5.2) mmol/L Chloride 104 (100-108) mmol/L Carbon Dioxide 21 (21-32) mmol/L Anion Gap 13.8 (5.0-14.0) mmol/L BUN 15 (7-18) mg/dL Creatinine 1.0 (0.8-1.3) mg/dL Est Cr Clr Drug Dosing 48.61 mL/min Estimated GFR (MDRD) > 60 (>60) Glucose 125 H (74-106) mg/dL Lactic Acid (0.4-2.0) mmol/L Calcium 7.4 L (8.5-10.1) mg/dL Magnesium 1.5 L (1.8-2.4) mg/dL Venkat Results Last 24 Hours: Microbiology 01/17/18 20:45 Aerobic Blood Culture - Preliminary Blood - Venous Anaerobic Blood Culture - Preliminary NO GROWTH AFTER 1 DAY 01/17/18 20:45 Aerobic Blood Culture - Preliminary Blood - Venous - Lab Draw Anaerobic Blood Culture - Preliminary NO GROWTH AFTER 1 DAY 01/17/18 22:00 Urine Culture - Preliminary Urine, Clean Catch Med Orders - Current: Current Medications Acetaminophen (Tylenol) 650 mg PO Q4H PRN PRN Reason: Pain (Mild 1-3)/fever Last Admin: 01/19/18 08:05 Dose: 650 mg Albuterol (Proventil Neb Soln) 2.5 mg NEB Q4H PRN PRN Reason: Shortness Of Breath/wheezing Bisacodyl (Dulcolax) 5 mg PO DAILY PRN PRN Reason: Constipation Colestipol HCl (Colestipol Hcl) 2 gm PO BEDTIME [facility] Last Admin: 01/18/18 21:23 Dose: 2 gm Dextrose (Glutose 15) 15 gm PO ONETIME PRN PRN Reason: Hypoglycemia Dextrose/Water (Dextrose 50% In Water) 50 ml IV ASDIRECTED PRN PRN Reason: Hypoglycemia Docusate Sodium (Colace) 100 mg PO BID PRN PRN Reason: Constipation Enoxaparin Sodium (Lovenox) 40 mg SUBCUT DAILY [facility] Last Admin: 01/19/18 08:07 Dose: 40 mg Finasteride (Proscar) 5 mg PO DAILY [facility] Last Admin: 01/19/18 08:07 Dose: 5 mg Ceftriaxone Sodium 1 gm/ (Sodium Chloride) 50 mls @ 100 mls/hr IV Q24H [facility] Last Admin: 01/19/18 08:14 Dose: 100 mls/hr Magnesium Sulfate 2 gm/ Premix 50 mls @ 25 mls/hr IV ONETIME ONE Stop: 01/19/18 11:59 Last Admin: 01/19/18 09:47 Dose: 25 mls/hr Ibuprofen (Motrin) 400 mg PO Q6H PRN PRN Reason: Pain (mild 1-3) Last Admin: 01/18/18 14:14 Dose: 400 mg Insulin Aspart (Novolog) 0 unit SUBCUT QIDACANDBED [facility]; Protocol Last Admin: 01/19/18 08:02 Dose: Not Given Lactobacillus Rhamnosus (Culturelle) 1 cap PO BID [facility] Last Admin: 01/19/18 08:06 Dose: 1 cap Loperamide HCl (Imodium) 2 mg PO BID [facility] Last Admin: 01/19/18 08:07 Dose: 2 mg Lorazepam (Ativan) 1 mg IV Q6H PRN PRN Reason: Nausea/Vomiting Magnesium Oxide (Magnesium Oxide) 400 mg PO BID [facility] Last Admin: 01/19/18 10:25 Dose: 400 mg Melatonin (Melatonin) 6 mg PO BEDTIME PRN PRN Reason: Insomnia Morphine Sulfate (Morphine) 2 mg IVPUSH Q2H PRN PRN Reason: Pain (severe 7-10) Ondansetron HCl (Zofran Odt) 4 mg PO Q6H PRN PRN Reason: Nausea able to take PO Ondansetron HCl (Zofran) 4 mg IV Q4H PRN PRN Reason: Nausea/Vomiting Oxycodone HCl (Oxycodone) 5 mg PO Q4H PRN PRN Reason: Pain (moderate 4-6) Pantoprazole Sodium (Protonix) 40 mg PO BEDTIME [facility] Simethicone (Simethicone) 240 mg PO DAILY PRN PRN Reason: Gas Discontinued Medications Acetaminophen (Tylenol) 650 mg PO NOW ONE Stop: 01/17/18 22:37 Last Admin: 01/17/18 22:43 Dose: 650 mg Enoxaparin Sodium (Lovenox) 40 mg SUBCUT ONETIME ONE Stop: 01/18/18 01:01 Last Admin: 01/18/18 05:14 Dose: Not Given Ciprofloxacin/Dextrose 400 mg/ (Premix) 200 mls @ 200 mls/hr IV Q12H [facility] Last Admin: 01/17/18 22:32 Dose: 200 mls/hr Sodium Chloride (Normal Saline) 1,000 mls @ 999 mls/hr IV ASDIRECTED [facility] Last Admin: 01/17/18 22:32 Dose: 999 mls/hr Sodium Chloride (Normal Saline) 1,000 mls @ 125 mls/hr IV ASDIRECTED [facility] Last Admin: 01/19/18 01:47 Dose: 125 mls/hr Ciprofloxacin/Dextrose 400 mg/ (Premix) 200 mls @ 200 mls/hr IV Q12H [facility] Sodium Chloride (Normal Saline) 1,000 mls @ 250 mls/hr IV ASDIRECTED [facility] Stop: 01/18/18 16:46 Lactobacillus Rhamnosus (Culturelle) 1 cap PO DAILY [facility] Last Admin: 01/18/18 10:03 Dose: 1 cap Pantoprazole Sodium (Protonix Iv) 40 mg IVPUSH Q24H [facility] Last Admin: 01/18/18 05:15 Dose: Not Given Pantoprazole Sodium (Protonix Iv) 40 mg IVPUSH ONETIME ONE Stop: 01/17/18 23:46 Last Admin: 01/18/18 00:18 Dose: 40 mg Pantoprazole Sodium (Protonix Iv) 40 mg IVPUSH Q24H [facility] Last Admin: 01/18/18 21:24 Dose: 40 mg - Exam Quality Assessment: DVT Prophylaxis General: Alert, Oriented, Cooperative, No Acute Distress Lungs: Clear to Auscultation, Normal Respiratory Effort Cardiovascular: Regular Rate, Regular Rhythm GI/Abdominal Exam: Soft, Non-Tender, No Organomegaly, No Distention Extremities: Non-Tender, No Pedal Edema Skin: Warm, Dry, Intact - Problem List Review Problem List Initiated/Reviewed/Updated: Yes - My Orders Last 24 Hours: My Active Orders 01/18/18 12:57 Blood Glucose Check, Bedside [RC] QIDACANDBED Communication Order [RC] STAT Diabetes Education [RC] Click to Edit Notify Provider [RC] PRN Dextrose 50% in Water 50 ml IV ASDIRECTED PRN Dextrose [Glutose 15] 15 gm PO ONETIME PRN 01/18/18 17:00 Insulin Aspart [NovoLOG] See Protocol SUBCUT QIDACANDBED 01/18/18 21:00 Lactobacillus Rhamnosus GG [Culturelle] 1 cap PO BID 01/19/18 09:15 Magnesium Oxide 400 mg PO BID 01/19/18 10:00 Magnesium Sulfate/Water [Magnesium Sulfate 2 GM in Water 50 ML] 2 gm Premix Bag 1 bag IV ONETIME 01/19/18 11:15 Convert IV to Saline Lock [OM.PC] Routine 01/19/18 11:30 GLUCOSE POC LAB TO COLLECT [POC] QIDACANDBED 01/19/18 16:30 GLUCOSE POC LAB TO COLLECT [POC] QIDACANDBED 01/19/18 21:00 GLUCOSE POC LAB TO COLLECT [POC] QIDACANDBED 01/20/18 07:30 GLUCOSE POC LAB TO COLLECT [POC] QIDACANDBED 01/20/18 11:30 GLUCOSE POC LAB TO COLLECT [POC] QIDACANDBED 01/20/18 16:30 GLUCOSE POC LAB TO COLLECT [POC] QIDACANDBED 01/20/18 21:00 GLUCOSE POC LAB TO COLLECT [POC] QIDACANDBED 01/21/18 07:30 GLUCOSE POC LAB TO COLLECT [POC] QIDACANDBED 01/21/18 11:30 GLUCOSE POC LAB TO COLLECT [POC] QIDACANDBED 01/21/18 16:30 GLUCOSE POC LAB TO COLLECT [POC] QIDACANDBED 01/21/18 21:00 GLUCOSE POC LAB TO COLLECT [POC] QIDACANDBED 01/22/18 07:30 GLUCOSE POC LAB TO COLLECT [POC] QIDACANDBED 01/22/18 11:30 GLUCOSE POC LAB TO COLLECT [POC] QIDACANDBED 01/22/18 16:30 GLUCOSE POC LAB TO COLLECT [POC] QIDACANDBED 01/22/18 21:00 GLUCOSE POC LAB TO COLLECT [POC] QIDACANDBED 01/23/18 07:30 GLUCOSE POC LAB TO COLLECT [POC] QIDACANDBED 01/23/18 11:30 GLUCOSE POC LAB TO COLLECT [POC] QIDACANDBED - Plan Plan:: ASSESSMENT / PLAN Sepsis due to bladder infection-both blood cultures growing gram-negative rods, final ID and sensitivities pending. Improved since yesterday with increased strength, no fevers -Saline lock IV -IV Antibiotic: Rocephin 1 g IV every 24 hours -Tyenol for fever control -urine culture ID and sensitivities pending Diabetes type 2; diet controlled -consistent carb diet -4 times a day glucometers -Low-dose sliding scale NovoLog Maintenance issues -Orders home meds: ordered -Nutrition: diabetic diet -Vanessa catheter not indicated at this time -DVT: SCD -PPI: IV Protonix 40mg daily CODE STATUS: DNR/DNI Admission status: This patient will be admitted for inpatient services and is medically appropriate meeting medical necessity for inpatient admission as outlined in my documentation. I reasonably expect the patient will require inpatient services that span. Time over 2 midnights. I reasonably expect this patient to be discharged or transferred within 96 hours after admission to the [facility]. Disposition; home Primary care provider: Outside Provider, DAISHA El Hospitalist: Dr. Jo
[2018-01-19] MEDS ORDERED: Pantoprazole 40 MG Tab.CR PO SCH (21:00)
[2018-01-19] MEDS: COLESTIPOL 1 GM PO SCH (21:29)
[2018-01-20] MEDS: Insulin Aspart 100 Units/ML 3 ML Pen SUBCUT SCH (07:55)
[2018-01-20] MEDS: cefTRIAXone 1 GM in Sodium Chloride 0.9% 50 ML IV SCH (08:00)
[2018-01-20] MEDS: Loperamide 2 MG Cap PO SCH (08:01)
[2018-01-20] MEDS: Magnesium Oxide 400 MG Tab PO SCH (08:01)
[2018-01-20] MEDS: Lactobacillus Rhamnosus GG (Probiotic) Cap PO SCH (08:01)
[2018-01-20] MEDS: Enoxaparin 40 MG/0.4 ML Syringe SUBCUT SCH (08:01)
[2018-01-20] MEDS: Finasteride 5 MG Tab PO SCH (08:01)
--- NOTE | 2018-01-20 10:32 | PCM.DCSUM1 ---
Discharge Summary - Hospital Course Brief History: Mr. Preciado is an 87-year-old gentleman who was admitted through the emergency department with weakness and fever secondary to a urinary tract infection with sepsis. - Discharge Data Discharge Date: 01/20/18 Discharge Disposition: Home, [facility] Condition: Fair - Discharge Diagnosis/Problem(s) (1) Urinary tract infection SNOMED Code(s): 69611716 ICD Code: N39.0 - URINARY TRACT INFECTION, SITE NOT SPECIFIED Status: Acute Current Visit: Yes (2) Sepsis SNOMED Code(s): 07539805 ICD Code: A41.9 - SEPSIS, UNSPECIFIED ORGANISM Status: Acute Current Visit: Yes (3) Diabetes mellitus type 2 in nonobese SNOMED Code(s): 923446152 ICD Code: E11.9 - TYPE 2 DIABETES MELLITUS WITHOUT COMPLICATIONS Status: Chronic Priority: High Current Visit: Yes - Patient Summary/Data Consults: Consultations 01/18/18 09:25 PT Evaluation and Treatment [CONS] Routine Please Evaluate and Treat. PT Reason for Consult: Strengthening Pending Discharge: Yes Discharge Disposition: Home This query below is only for informational purposes and is not editable. Admission Diagnosis/Problem: Urosepsis Hospital Course: Mr. Preciado is an 87-year-old gentleman who had had symptoms of progressive weakness and fever. He presented to the emergency department for further evaluation and on assessment was found to have evidence of urinary tract infection and probable sepsis. Chest x-ray and other studies showed no evidence of other obvious source of infection. He was given IV fluids for hydration and management of sepsis and started initially on IV antibiotic therapy with ciprofloxacin. This was changed shortly after admission to ceftriaxone. Blood cultures obtained at the time of admission did come back positive for Klebsiella pneumonia which was for the most part pansensitive. Urine culture also grew out Klebsiella pneumonia. Over the next few days of hospital stay he remained afebrile with stabilization of vital signs. White blood cell count normalized and he was feeling well and walking in the hallways with use of a walker prior to discharge. He has a known history of diet managed type 2 diabetes mellitus. During his hospital stay glucometers were measured 4 times daily and he was treated with low-dose sliding scale NovoLog. Activity will be as tolerated and he will resume his usual diabetic diet. He will be on ciprofloxacin 500 mg twice daily for an additional 5 days. He should continue to take probiotic therapy as he was prior to admission. Home care will be scheduled including home physical therapy. Follow-up appointment will be scheduled with his primary care provider within one week. - Patient Instructions Diet: Diabetic Diet Activity: As Tolerated Other/Special Instructions: Discharge to home with home care services. Follow- up appointment with primary care provider within one week. - Discharge Plan *PRESCRIPTION DRUG MONITORING PROGRAM REVIEWED*: Not Applicable *COPY OF PRESCRIPTION DRUG MONITORING REPORT IN PATIENT CHAD: Not Applicable Prescriptions/Med Rec: Ciprofloxacin HCl [Cipro] 500 mg PO BID #10 tablet Home Medications: Home Meds Aspirin [Saloni Chewable Aspirin] 81 mg PO DAILY 01/17/18 [History] Bifidobacterium Infantis [Align] 4 mg PO DAILY 01/17/18 [History] Colestipol HCl 2 tab PO BEDTIME 01/17/18 [History] Finasteride 5 mg PO DAILY 01/17/18 [History] Loperamide [Imodium] 2 mg PO BID 01/17/18 [History] Simethicone [Phazyme] 250 mg PO DAILY PRN 01/17/18 [History] Ciprofloxacin HCl [Cipro] 500 mg PO BID #10 tablet 01/20/18 [Rx] Forms: ED Department Discharge - Discharge Summary/Plan Comment DC Time >30 min.: No - Patient Data Vitals - Most Recent: Last Vital Signs Temp 98.2 F 01/20/18 07:00 Pulse 75 01/20/18 07:00 Resp 16 01/20/18 07:00 BP 128/69 01/20/18 07:00 Pulse Ox 96 01/20/18 07:00 Weight - Most Recent: 142 lb 14.388 oz I&O - Last 24 hours: Intake & Output 01/19/18 01/20/18 01/20/18 22:59 06:59 14:59 Intake Total 500 Output Total 850 300 300 Balance -850 -300 200 NANCY Results - Last 24 hrs: Microbiology 01/17/18 20:45 Aerobic Blood Culture - Final Blood - Venous Klebsiella Pneumonia Ss Pneumo Anaerobic Blood Culture - Preliminary NO GROWTH AFTER 2 DAYS 01/17/18 20:45 Aerobic Blood Culture - Final Blood - Venous - Lab Draw Klebsiella Pneumonia Ss Pneumo Anaerobic Blood Culture - Preliminary NO GROWTH AFTER 2 DAYS 01/17/18 22:00 Urine Culture - Final Urine, Clean Catch Klebsiella Pneumonia Ss Pneumo Med Orders - Current: Current Medications Acetaminophen (Tylenol) 650 mg PO Q4H PRN PRN Reason: Pain (Mild 1-3)/fever Last Admin: 01/19/18 21:35 Dose: 650 mg Albuterol (Proventil Neb Soln) 2.5 mg NEB Q4H PRN PRN Reason: Shortness Of Breath/wheezing Bisacodyl (Dulcolax) 5 mg PO DAILY PRN PRN Reason: Constipation Colestipol HCl (Colestipol Hcl) 2 gm PO BEDTIME COUNT INCLUDES THE [facility] Last Admin: 01/19/18 21:29 Dose: 2 gm Dextrose (Glutose 15) 15 gm PO ONETIME PRN PRN Reason: Hypoglycemia Dextrose/Water (Dextrose 50% In Water) 50 ml IV ASDIRECTED PRN PRN Reason: Hypoglycemia Docusate Sodium (Colace) 100 mg PO BID PRN PRN Reason: Constipation Enoxaparin Sodium (Lovenox) 40 mg SUBCUT DAILY COUNT INCLUDES THE [facility] Last Admin: 01/20/18 08:01 Dose: 40 mg Finasteride (Proscar) 5 mg PO DAILY COUNT INCLUDES THE [facility] Last Admin: 01/20/18 08:01 Dose: 5 mg Ceftriaxone Sodium 1 gm/ (Sodium Chloride) 50 mls @ 100 mls/hr IV Q24H COUNT INCLUDES THE [facility] Last Admin: 01/20/18 08:00 Dose: 100 mls/hr Ibuprofen (Motrin) 400 mg PO Q6H PRN PRN Reason: Pain (mild 1-3) Last Admin: 01/18/18 14:14 Dose: 400 mg Insulin Aspart (Novolog) 0 unit SUBCUT QIDACANDBED COUNT INCLUDES THE [facility]; Protocol Last Admin: 01/20/18 07:55 Dose: Not Given Lactobacillus Rhamnosus (Culturelle) 1 cap PO BID COUNT INCLUDES THE [facility] Last Admin: 01/20/18 08:01 Dose: 1 cap Loperamide HCl (Imodium) 2 mg PO BID COUNT INCLUDES THE [facility] Last Admin: 01/20/18 08:01 Dose: 2 mg Lorazepam (Ativan) 1 mg IV Q6H PRN PRN Reason: Nausea/Vomiting Magnesium Oxide (Magnesium Oxide) 400 mg PO BID COUNT INCLUDES THE [facility] Last Admin: 01/20/18 08:01 Dose: 400 mg Melatonin (Melatonin) 6 mg PO BEDTIME PRN PRN Reason: Insomnia Morphine Sulfate (Morphine) 2 mg IVPUSH Q2H PRN PRN Reason: Pain (severe 7-10) Ondansetron HCl (Zofran Odt) 4 mg PO Q6H PRN PRN Reason: Nausea able to take PO Ondansetron HCl (Zofran) 4 mg IV Q4H PRN PRN Reason: Nausea/Vomiting Oxycodone HCl (Oxycodone) 5 mg PO Q4H PRN PRN Reason: Pain (moderate 4-6) Pantoprazole Sodium (Protonix) 40 mg PO BEDTIME COUNT INCLUDES THE [facility] Last Admin: 01/19/18 21:31 Dose: 40 mg Simethicone (Simethicone) 240 mg PO DAILY PRN PRN Reason: Gas Discontinued Medications Acetaminophen (Tylenol) 650 mg PO NOW ONE Stop: 01/17/18 22:37 Last Admin: 01/17/18 22:43 Dose: 650 mg Enoxaparin Sodium (Lovenox) 40 mg SUBCUT ONETIME ONE Stop: 01/18/18 01:01 Last Admin: 01/18/18 05:14 Dose: Not Given Ciprofloxacin/Dextrose 400 mg/ (Premix) 200 mls @ 200 mls/hr IV Q12H COUNT INCLUDES THE [facility] Last Admin: 01/17/18 22:32 Dose: 200 mls/hr Sodium Chloride (Normal Saline) 1,000 mls @ 999 mls/hr IV ASDIRECTED COUNT INCLUDES THE [facility] Last Admin: 01/17/18 22:32 Dose: 999 mls/hr Sodium Chloride (Normal Saline) 1,000 mls @ 125 mls/hr IV ASDIRECTED COUNT INCLUDES THE [facility] Last Admin: 01/19/18 01:47 Dose: 125 mls/hr Ciprofloxacin/Dextrose 400 mg/ (Premix) 200 mls @ 200 mls/hr IV Q12H COUNT INCLUDES THE [facility] Sodium Chloride (Normal Saline) 1,000 mls @ 250 mls/hr IV ASDIRECTED COUNT INCLUDES THE [facility] Stop: 01/18/18 16:46 Magnesium Sulfate 2 gm/ Premix 50 mls @ 25 mls/hr IV ONETIME ONE Stop: 01/19/18 11:59 Last Admin: 01/19/18 09:47 Dose: 25 mls/hr Lactobacillus Rhamnosus (Culturelle) 1 cap PO DAILY COUNT INCLUDES THE [facility] Last Admin: 01/18/18 10:03 Dose: 1 cap Pantoprazole Sodium (Protonix Iv) 40 mg IVPUSH Q24H COUNT INCLUDES THE [facility] Last Admin: 01/18/18 05:15 Dose: Not Given Pantoprazole Sodium (Protonix Iv) 40 mg IVPUSH ONETIME ONE Stop: 01/17/18 23:46 Last Admin: 01/18/18 00:18 Dose: 40 mg Pantoprazole Sodium (Protonix Iv) 40 mg IVPUSH Q24H COUNT INCLUDES THE [facility] Last Admin: 01/18/18 21:24 Dose: 40 mg - Exam Quality Assessment: Reports: DVT Prophylaxis General: Reports: Alert, Oriented, Cooperative, No Acute Distress Lungs: Reports: Clear to Auscultation, Normal Respiratory Effort Cardiovascular: Reports: Regular Rate, Regular Rhythm, No Murmurs GI/Abdominal Exam: Soft, Non-Tender, No Organomegaly, No Distention Extremities: Non-Tender, No Pedal Edema Skin: Reports: Warm, Dry, Intact
== END 2018-01-20 12:38 | disposition home health service (06) | DRG 872 ==
LOC: JP.ED 19:34 → EDBD 19:34 → JP.MS 22:38
PROVIDERS: ADMIT Internal Medicine; ATTEND Hospitalist
DX: A41.9 Sepsis, unspecified organism (principal); A41.59 Other Gram-negative sepsis; N39.0 Urinary tract infection, site not specified; B96.1 Klebsiella pneumoniae [K. pneumoniae] as the cause of diseases classified elsewhere; Z66 Do not resuscitate; E11.40 Type 2 diabetes mellitus with diabetic neuropathy, unspecified; Z85.6 Personal history of leukemia; R53.1 Weakness; R50.9 Fever, unspecified; Z92.21 Personal history of antineoplastic chemotherapy; Z87.891 Personal history of nicotine dependence; N40.0 Benign prostatic hyperplasia without lower urinary tract symptoms; K52.9 Noninfective gastroenteritis and colitis, unspecified; M54.9 Dorsalgia, unspecified; G89.29 Other chronic pain; H91.90 Unspecified hearing loss, unspecified ear; Z90.49 Acquired absence of other specified parts of digestive tract; Z79.82 Long term (current) use of aspirin
CPT/HCPCS: 36415; 71045 ×2; 80053; 81001; 83605; 85025; 86140; 87040 ×2; 87077; 87086; 87186 ×2; 93005; 99285; J0744; J7030; 80048; 82962; 83735; 87088; 93010; 97110-GP; 97161-GP; 97530-GP; 97535-GP; A9270-GY; C9113; J0696; J1650; J3475; J7050